=== PATIENT | male | born 2000 | race Caucasian/White ===

== ENCOUNTER 2022-11-28 14:41 | Emergency (ER) | payer OTHER ==
[~2022-11-28] VITALS: Ht 182.8 cm; Wt 68.0 kg
[2022-11-28 15:42] LABS: BASO % 0.4 % (0.0-1.0); EOS # 0.1 10*3/uL (0.0-0.4); HEMATOCRIT 46.4 % (42.0-52.0); LYMPH # 0.9 10*3/uL (1.3-4.4); LYMPH % 7.8 % (27.0-41.0); MEAN CELL VOLUME 87.5 fl (80.0-94.0); MEAN CORPUSCULAR HGB 29.6 pg (27.0-31.0); MEAN CORPUSCULAR HGB CONC 33.8 g/dl (33.0-37.0); MEAN PLATELET VOLUME 9.2 fl (9.6-12.3); MONO % 8.5 % (3.0-9.0); NEUT # 9.2 10*3/uL (2.3-7.9); PLATELET COUNT AUTOMATED 291 10*3/uL (130-400); RED CELL DISTRI WIDTH 11.8 % (0-14.5); WHITE BLOOD COUNT 11.2 10*3/uL (4.8-10.8)
[2022-11-28 16:08] LABS: ALKALINE PHOSPHATASE 80 U/L (46-116); BUN 8 mg/dl (9-23); CHLORIDE 104 mmol/L (98-107); LIPASE 27 U/L (12-53); POTASSIUM 3.4 mmol/L (3.4-5.1); TOTAL PROTEIN 7.5 gm/dL (6.0-8.0)
[2022-11-28 16:13] LABS: SGPT/ALT < 7 U/L (10-49)
[2022-11-28] MEDS ORDERED: HYDROCODONE-AC1 EAC1 PO (20:23)
[2022-11-28] MEDS ORDERED: LEVOFLOXACIN500 MG PO (20:23)
[2022-11-28] MEDS ORDERED: NAPROXEN250 MG PO (20:23)
[2022-11-28] MEDS ORDERED: METRONIDAZOLE500 M1 PO (20:23)
== END 2022-11-28 20:35 | disposition home or self-care (01) ==
LOC: ED 14:41
PROVIDERS: Emergency Medicine
DX: K37 Unspecified appendicitis (principal); R79.82 Elevated C-reactive protein (CRP)